=== PATIENT | female | born 1975 | race Caucasian/White ===

== ENCOUNTER 2019-01-10 18:50 | Emergency (ER) | payer SELFPAY ==
[~2019-01-10] VITALS: Ht 157.5 cm; Wt 53.3 kg
[2019-01-10 19:20] VITALS: BP 135/69
--- NOTE | 2019-01-10 19:23 | NUR ---
PT RETURNED TO LOBBY IN STABLE CONDITION
--- NOTE | 2019-01-10 19:34 | NUR ---
PT AMBULATED TO BED 9.
--- NOTE | 2019-01-10 20:04 | NUR ---
43 YO F BIB SELF PRESENTS TO ED C/O COUGH AND 8/10 NUNO, SORE THROAT X 3 DAYS. DENIES FEVER BUT REPORTS FEELING CHILLS. PT IS AFEBRILE AT THIS TIME. DENIES NVD. -- PT IS A/O X 4. SKIN IS PINK/DRY/INTACT. FOLLOWS COMMAND AND BEHAVES APPROPRIATELY. -- LUNGS CTA. BREATHING IS EVEN/UNLABORED. SP02: 98% -- PMH: DENIES -- RX: DENIES PT POSITIONED FOR COMFORT. HOB ELEVATED. SIDE RAIL UP X 1. BED IN LOWEST POSITION. VSS. NO APPARENT DISTRESS AT THIS TIME.
[2019-01-10] MEDS ORDERED: DEXAMETHASONE 10 MG/ML VIAL IM ONE (20:25)
[2019-01-10 20:38] VITALS: BP 121/74
--- NOTE | 2019-01-10 20:38 | NUR ---
Patient discharged with v/s stable. Written and verbal after care instructions given and explained. Patient alert, oriented and verbalized understanding of instructions. Ambulatory with steady gait. All questions addressed prior to discharge. ID band removed. Patient advised to follow up with PMD. Rx of Prednisone, Albuterol, Tessalon Perles given. Patient educated on indication of medication including possible reaction and side effects. Opportunity to ask questions provided and answered.
== END 2019-01-10 20:38 | disposition home or self-care (01) ==
LOC: MED 18:50
DX: J45.901 Unspecified asthma with (acute) exacerbation (principal); J06.9 Acute upper respiratory infection, unspecified; R51 Headache; F17.210 Nicotine dependence, cigarettes, uncomplicated; Z88.6 Allergy status to analgesic agent
CPT/HCPCS: 96372; 99283; J1100

== ENCOUNTER 2020-02-10 20:58 | Emergency (ER) | payer SELFPAY ==
[~2020-02-10] VITALS: Ht 160 cm; Wt 54.4 kg
--- NOTE | 2020-02-10 20:59 | NUR ---
PT JACLYN BLS. TAKEN TO BED 7
[2020-02-10 21:03] VITALS: BP 143/81
[2020-02-10] MEDS ORDERED: methylPREDNISolone SS 125 MG/2 ML VIAL IVP ONE (21:15)
[2020-02-10] MEDS ORDERED: ONDANSETRON 4 MG/2 ML VIAL IVP ONE (21:15)
[2020-02-10] MEDS ORDERED: diphenhydrAMINE 50 MG/ML VIAL IVP ONE (21:15)
[2020-02-10] MEDS ORDERED: NACL 0.9% 1,000 ML IV ONE (21:15)
--- NOTE | 2020-02-10 21:20 | NUR ---
ASSESSMENT PERFORMED AT 2119. 44 YEAR OLD FEMALE BIBA FROM [facility] FOR BUG BITE. PATIENT STATES SHE HAD A BUG BITE X 3 HOURS AGO AND FELT LIKE WANTING TO PASS OUT. PATINET STATES SHE IS FEELING A LITTLE BETTER NOW THOUGH. PATIENT WITH VISIBLE BITE ON LEFT SHOULDER THAT IS WITH SWELLING AND REDNESS. PATIENT AOX4, BREATHING EVEN AND UNLABORED, SKIN WARM AND DRY. BED IN LOWEST POSITION, LOCKED, BED RAIL UPX1. PMH - HX SI ALLERGIES - DILUADID
--- NOTE | 2020-02-10 21:50 | NUR ---
UNABLE TO OBTAIN IV ACCESS, ANOTHER NURSE ATTEMPTING AT THIS TIME
--- NOTE | 2020-02-10 21:51 | NUR ---
Note codi in EDM - 02/10/20 at 2157 by COTY ASSESSMENT PERFORMED AT 2120. 44 YEAR OLD FEMALE BIBA FROM [facility] FOR BUG BITE. PATIENT STATES SHE HAD A BUG BITE X 3 HOURS AGO AND FELT LIKE WANTING TO PASS OUT. PATINET STATES SHE IS FEELING A LITTLE BETTER NOW THOUGH. PATIENT WITH VISIBLE BITE ON LEFT SHOULDER THAT IS WITH SWELLING AND REDNESS. PATIENT AOX4, BREATHING EVEN AND UNLABORED, SKIN WARM AND DRY. BED IN LOWEST POSITION, LOCKED, BED RAIL UPX1. PMH - HX SI ALLERGIES - DILUADID
--- NOTE | 2020-02-10 23:00 | NUR ---
PT IS RESTING IN BED WITH EYES CLOSED. RESP EVEN AND UNLABORED. AROUSABLE TO VOICE. VSS.
[2020-02-10 23:05] LABS: BARBITURATE, URINE NEGATIVE ng/ml (NEG <=200); BENZODIAZEPINE, URINE NEGATIVE ng/mL (NEG <=200); COCAINE, URINE NEGATIVE ng/mL (NEG <=300)
[2020-02-10 23:06] LABS: CANNABINOID, URINE NEGATIVE ng/mL (NEG <=50); OPIATE, URINE NEGATIVE ng/mL (NEG <=2000); PHENCYCLIDINE SCREEN,URINE POSITIVE ng/mL (NEG <=25)
--- NOTE | 2020-02-11 00:57 | NUR ---
Patient discharged with v/s stable. Written and verbal after care instructions given and explained. Patient alert, oriented and verbalized understanding of instructions. Ambulatory with steady gait. All questions addressed prior to discharge. ID band removed. Patient advised to follow up with PMD. Rx of KEFLEX, PREDNISONE, CORTIZONE, BENADRYL given. Patient educated on indication of medication including possible reaction and side effects. Opportunity to ask questions provided and answered.
[2020-02-11 00:59] VITALS: BP 106/69
== END 2020-02-11 00:57 | disposition home or self-care (01) ==
LOC: MED 20:58
DX: N39.0 Urinary tract infection, site not specified (principal); R03.0 Elevated blood-pressure reading, without diagnosis of hypertension; F17.210 Nicotine dependence, cigarettes, uncomplicated
CPT/HCPCS: 80305; 81002; 81025; 87086; 96361; 96374; 96375; 99284; J1200; J2405; J2930; J7030; 87186

== ENCOUNTER 2023-09-09 12:39 | Emergency (ER) | payer SELFPAY ==
[~2023-09-09] VITALS: Ht 157.5 cm; Wt 72.6 kg
[2023-09-09 13:05] VITALS: BP 114/66; PULSE 83; RESP 18; TEMP 98; O2SAT 98
[2023-09-09] MEDS ORDERED: KETOROLAC 30 MG/ML VIAL IM ONE (13:35)
[2023-09-09 14:06] LABS: APPEARANCE,URINE CLEAR (CLEAR); BILIRUBIN,URINE NEGATIVE (NEGATIVE); BLOOD, URINE NEGATIVE (NEGATIVE); COLOR,URINE YELLOW (YELLOW); LEUKOCYTE ESTERASE ,URINE NEGATIVE (NEGATIVE); NITRITE, URINE NEGATIVE (NEGATIVE); PROTEIN,URINE NEGATIVE (NEGATIVE); UGLUCOSE NEGATIVE (NEGATIVE); UROBILINOGEN,URINE 0.2 EU/dL (0.2 - 1)
[2023-09-09 14:22] LABS: FLU A ANTIGEN negative (NEGATIVE); FLU B ANTIGEN negative (NEGATIVE)
[2023-09-09] MEDS ORDERED: LID5T TP (14:42)
[2023-09-09] MEDS ORDERED: CYCL-711 PO (14:42)
[2023-09-09] MEDS ORDERED: IBUP-2213 PO (14:42)
[2023-09-09 14:55] VITALS: BP 121/66; PULSE 81; RESP 18; TEMP 98; O2SAT 99
== END 2023-09-09 14:55 | disposition home or self-care (01) ==
LOC: MED 12:39
DX: S39.012A Strain of muscle, fascia and tendon of lower back, initial encounter (principal); Z20.822 Contact with and (suspected) exposure to COVID-19; B34.9 Viral infection, unspecified; Z79.899 Other long term (current) drug therapy; X58.XXXA Exposure to other specified factors, initial encounter; Y93.89 Activity, other specified; Y92.89 Other specified places as the place of occurrence of the external cause; Y99.8 Other external cause status
CPT/HCPCS: 81003; 81025; 87426; 87804; 96372; 99283; J1885